=== PATIENT | male | born 1945 | race Caucasian/White ===

== ENCOUNTER 2017-03-03 06:40 | Day surgery (SDC) | payer MEDICARE, OTHER ==
[2017-02-24 08:44] VITALS: BMI 41.1
[2017-03-03] MEDS ORDERED: Indomethacin 50 MG Suppository PR ONE (07:55)
[2017-03-03] MEDS ORDERED: Midazolam 2 MG/2 ML VIAL ONE (09:50)
[2017-03-03] MEDS ORDERED: Propofol 10 mg/ml Inj (20 ML) ONE ×2 (09:50→10:39)
[2017-03-03] MEDS ORDERED: Succinylcholine Chloride 20 mg/ml Syr (5 ml) IV ONE (09:51)
[2017-03-03] MEDS ORDERED: Etomidate 20 mg/10ml Inj IV ONE (10:05)
[2017-03-03 12:44] VITALS: BP 101/57; PULSE 96; RESP 13; TEMP 97.5; O2SAT 95
== END 2017-03-03 12:53 | disposition home or self-care (01) ==
LOC: C.ENDO 06:40
PROVIDERS: ATTEND Internal Medicine
DX: K86.1 Other chronic pancreatitis (principal); K29.70 Gastritis, unspecified, without bleeding
CPT/HCPCS: 43237; 82948; J2001; J2250; J2704; J3010